=== PATIENT | male | born 1950 | race Hispanic/Latino ===

== ENCOUNTER 2023-09-04 13:14 | Emergency (ER) | payer MEDICARE, OTHER ==
[~2023-09-04] VITALS: Ht 175.3 cm; Wt 93.1 kg
[2023-09-04] MEDS ORDERED: NITROGLYCERIN 2% OINT 1 GM PKT TOP ONE (13:45)
[2023-09-04] MEDS ORDERED: HYDRALAZINE HCL 20 MG/ML VIAL IV ONE (13:45)
[2023-09-04] MEDS ORDERED: AMLODIPINE BESY10 MG PO (13:47)
[2023-09-04] MEDS ORDERED: NITROGLYCERIN 2% OINT 1 GM PKT ONE (13:48)
[2023-09-04] MEDS ORDERED: HYDRALAZINE HCL 20 MG/ML VIAL ONE (13:48)
[2023-09-04 14:07] VITALS: BP 173/85
[2023-09-04] MEDS ORDERED: ACETAMINOPHEN 325 MG TAB ONE (14:40)
[2023-09-04 14:43] VITALS: O2SAT 95
[2023-09-04] MEDS ORDERED: ACETAMINOPHEN 325 MG TAB PO ONE (14:45)
== END 2023-09-04 14:43 | disposition home or self-care (01) ==
LOC: FSED 13:17
DX: R42 Dizziness and giddiness (principal); I16.0 Hypertensive urgency; R51.9 Headache, unspecified
CPT/HCPCS: 80053; 81003; 82553; 84484; 85025; 93005; 96374; 99284; J0360